=== PATIENT | female | born 1940 | race Two or more races ===

== ENCOUNTER 2019-01-30 06:51 | Day surgery (SDC) | payer OTHER ==
[2019-01-30] MEDS ORDERED: LIDOCAINE 2% (SDV) 5 ML INJ (09:20)
[2019-01-30] MEDS ORDERED: PROPOFOL 60 ML (09:20)
[2019-01-30] MEDS ORDERED: FENTAnyl 50 MCG/ML VIAL (09:20)
[2019-01-30] MEDS ORDERED: ONDANSETRON 4 MG INJ IV (10:30)
[2019-01-30] MEDS ORDERED: FENTAnyl 50 MCG/ML VIAL IV (10:30)
[2019-01-30] MEDS ORDERED: METOCLOPRAMIDE 10 MG INJ IV (10:30)
[2019-01-30] MEDS ORDERED: MEPERIDINE 25 MG INJ IV (10:30)
[2019-01-30] MEDS ORDERED: DIPHENHYDRAMINE 50 MG INJ IV (10:30)
== END 2019-01-30 12:02 | disposition home or self-care (01) ==
LOC: GIL 06:51
DX: Z12.11 Encounter for screening for malignant neoplasm of colon (principal); D12.5 Benign neoplasm of sigmoid colon; K57.30 Diverticulosis of large intestine without perforation or abscess without bleeding; K64.4 Residual hemorrhoidal skin tags; K20.8 Other esophagitis; I10 Essential (primary) hypertension; E78.5 Hyperlipidemia, unspecified; E66.9 Obesity, unspecified; Z68.24 Body mass index [BMI] 24.0-24.9, adult
CPT/HCPCS: 43239; 88305; 88312